=== PATIENT | female | born 1985 | race Caucasian/White ===

== ENCOUNTER 2018-05-25 14:06 | Day surgery (SDC) | payer OTHER, SELFPAY ==
[2018-05-20 08:46] VITALS: BMI 23.0
[2018-05-25] VITALS (10 sets, daily range): BP systolic 100–119; BP diastolic 63–79; PULSE 64–88; RESP 10–18; TEMP 36.1–36.6; O2SAT 96–100; BMI 22.2
[2018-05-25] MEDS: LACTATED RINGERS 1,000 ML 42 ML IV (14:46)
--- NOTE | 2018-05-25 15:02 | PM.PREOP ---
Pre-operative Note Interval Note Pre-op Check: Yes Exam Performed and Yes History & Physical exam performed today by Physician Changes: No
--- NOTE | 2018-05-25 15:51 | SUR.OPER ---
Lithotomy on padded OR bed, head on pillow, arms padded and tucked at side. Legs secured in padded yellow fins stirrups.
[2018-05-25] MEDS: BUPIVACAINE 0.25% (PF) VIAL 30 ML INJ (15:58)
[2018-05-25] MEDS: METHYLENE BLUE 50 MG/10 ML VIAL INJ (15:59)
[2018-05-25] MEDS: ACETAMINOPHEN IV 1,000 MG/100 ML VIAL 400 MG IV (16:19)
--- NOTE | 2018-05-25 16:37 | SUR.PHASEI ---
Saying she feels strange when waking up as well as a being a bit teary.
--- NOTE | 2018-05-25 16:39 | P.OP_ITS ---
Operative Date/Time/Diagnoses Date of procedure: 05/25/18 Time of procedure: 16:38 Pre-op diagnosis: primary infertility primary dysmenorrhea Post-op diagnosis: other (endometriosis) Procedure: Procedures Operation Date: 05/25/18 15:30 Actual Procedures Side Surgeon p Laparoscopy, Diagnostic, DIRECTOR OF LABOR RELATIONS with Chromopertubation Librado Leo MD Indications: inability to conceive and primary dysmenorrhea Surgeon: Librado Leo [employer] Professor: Carmela Barclay Anesthesia Type: General and Local Operative Notes Findings: EUA: uterus NSSC, RV, normal adnexa operative findings: normal uterus, tubes and ovaries, anterior cul de sac. Endometriotic implants in left posterior cul de sac and right ovarian fossa. Normal liver edge and gall bladder. Specimen(s): none Estimated blood loss (mL): 5 Blood products transfused: none Procedure in detail: The patient was brought to the operating room, placed supine on the operating table and given general oroendotracheal anesthesia. She was then placed in low lithotomy stirrups and prepped and draped in the usual sterile fashion. A timeout was performed. An exam under anesthesia was performed. A speculum was inserted into her vagina and a HUMI uterine manipulator inserted through the cervix into the uterus. Attention was returned to the abdomen where the umbilicus was infiltrated with 5 ml of 0.5% Marcaine and a vertical stab incision was made. A Verress needle was inserted into the abdomen and its position verified by hanging drop technique. The abdomen was insufflated to 2L of CO2, after which the Verress needle was replaced by a 5mm laparoscope and sleeve which allowed visualization of entry into the abdomen. The trocar was removed and replaced by the laparoscope which was used to view abdominal contents as previously noted. 5mm trocars were placed under direct visualization in each lower quadrant lateral to the inferior epigastric vessels after the injection of 5 ml of 0.5% Marcaine followed by a stab incision. A paddle cautery device was used to coagulate each endometriotic implant after ascertaining that no vital structures were nearby. Instruments were removed from the abdomen which was then desufflated to the extent possible. The incisions were closed with superglue and the patient was taken to the recovery room in stable condition. Complications: none Post-operative Condition: stable Disposition: same day surgery Plan for aftercare: Home
[2018-05-25] MEDS: MEPERIDINE 50 MG/ML 25 MG IV (16:58)
== END 2018-05-25 17:39 | disposition home or self-care (01) ==
PROVIDERS: Visit Provider Obstetrics & Gynecology
PROC: (CPT 49320; principal; 2018-05-25 15:30)
DX: N97.9 Female infertility, unspecified (principal); N80.1 Endometriosis of ovary; N80.3 Endometriosis of pelvic peritoneum
CPT/HCPCS: 49320; 58350; J0131; J0330; J1100; J1885; J2175; J2250; J2405; J2704; J3010; Q9968